=== PATIENT | female | born 2000 | race Caucasian/White ===

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

== ENCOUNTER → 2020-05-08 | Outpatient (CLI) | payer BC, SELFPAY ==
[2020-05-08 12:58] LABS: Absolute Lymphocyte Count 1.76 X10^3/uL (0.83-4.51); Absolute Neutrophil Count 2.7 X10^3/uL (2.0-7.7); Basophil# 0.04 X10^3/uL; Basophil% 0.8 % (0-1); Eosinophils% 3.8 % (0-5); Hematocrit 43.4 % (37-47); Hemoglobin 14.1 g/dL (12.0-15.0); Lymphocyte # 1.76 X10^3/ul (4.0); Lymphocyte % 33.8 % (19-41); Mean Corp Hgb Conc 32.5 g/dL (32-36); Mean Corpuscular Hgb 30.3 pg (27.0-32.0); Mean Corpuscular Volume 93.1 fL (81-99); Mean Platelet Vol. 10.4 fl (6.2-12.0); Monocyte# 0.54 X10^3/uL; Monocyte% 10.4 % (0-10); NRBC Flagged by Analyzer 0 % (0-5); Neutrophil # 2.66 X10^3/uL (2.7-7.7); Platelet Count 232 K/mm3 (150-450); RBC Distribution Width CV 11.7 % (11.6-14.6); RBC Distribution Width SD 39.7 fl (35.1-43.9); Red Blood Count 4.66 M/mm3 (4.2-5.4); White Blood Count 5.2 K/mm3 (4.4-11.0)
[2020-05-08 13:24] LABS: Vitamin B12 283 pg/mL (211-911); Vitamin D,25 Hydroxy 48.5 ng/mL
[2020-05-08 13:34] LABS: AST(SGOT) 15 U/L (15-37); Alanine Aminotransfer ALT/SGPT 17 U/L (13-56); Albumin, Serum 3.8 g/dL (3.2-5.0); Alkaline Phosphatase 76 U/L (45-117); Anion Gap 6 (5-15); BUN 12 mg/dL (7-18); BUN/Creat Ratio 14.7 RATIO (10-20); Calcium,Total 9.2 mg/dL (8.5-10.1); Chloride 104 mmol/L (98-107); Creatinine, Serum 0.82 mg/dL (0.55-1.02); EST Glomerular Filtration Rate 94 mL/min (>60); Est Glom Filt Rate - Afr Amer 114 mL/min (>60); Ferritin 10 ng/mL (8-252); Globulin 3.9 g/dL (2.2-4.2); Glucose 59 mg/dL (74-106); Iron 178 ug/dL (50-170); Potassium 3.7 mmol/L (3.5-5.1); Protein, Total 7.7 g/dL (6.4-8.2); Sodium Level 138 mmol/L (136-145)
[2020-05-09 16:08] LABS: Endomysial Antibody IgA Negative (Negative)
[2020-05-09 19:10] LABS: Immunoglobulin A 205 mg/dL (87-352); t-Transglutaminase IgA <2 U/mL (0-3)
== END | disposition home or self-care (01) ==
LOC: LAB 10:43
DX: K90.0 Celiac disease (principal); Z78.9 Other specified health status; Z01.419 Encounter for gynecological examination (general) (routine) without abnormal findings
CPT/HCPCS: 36415; 80053; 82306; 82607; 82728; 82784; 83516; 83540; 85025; 86255

== ENCOUNTER → 2020-09-13 12:52 | Outpatient (CLI) | payer BC, SELFPAY ==
[2020-09-13 13:52] LABS: Anion Gap 7 (5-15); BUN 14 mg/dL (7-18); BUN/Creat Ratio 16.6 RATIO (10-20); Calcium,Total 9.1 mg/dL (8.5-10.1); Chloride 108 mmol/L (98-107); Creatinine, Serum 0.84 mg/dL (0.55-1.02); EST Glomerular Filtration Rate 90 mL/min (>60); Est Glom Filt Rate - Afr Amer 109 mL/min (>60); Glucose 81 mg/dL (74-106); Sodium Level 139 mmol/L (136-145)
[2020-09-13 13:56] LABS: Insulin 11.2 mU/L (2.6-37.6)
[2020-09-13 14:00] LABS: Hemoglobin A1c 5.2 % (3.8-5.6)
== END ==
DX: E16.2 Hypoglycemia, unspecified (principal)
CPT/HCPCS: 36415; 80048; 83036; 83525

== ENCOUNTER 2020-10-10 15:35 | Emergency (ER) | payer BC, SELFPAY ==
[2020-10-10 15:37] VITALS: BP 147/94; PULSE 112; RESP 16; TEMP 35.7; O2SAT 99; BMI 22.6
--- NOTE | 2020-10-10 16:11 | CT_ITS ---
STUDY: CT BRAIN WITHOUT CONTRAST REASON FOR EXAM: Female, 20 years old. myoclonus RADIATION DOSAGE (If Supplied By Facility): CTDIvol = ( 60.81 ) mGy, DLP = ( 1044.28 ) mGycm TECHNIQUE: Transaxial CT imaging of the brain was performed without administration of intravenous contrast material. Individualized dose optimization techniques were used for this CT. COMPARISON: No relevant priors. FINDINGS: Normal soft tissue structures. Normal calvarium. Normal size ventricles and extra-axial spaces for the patient''s age. Normal white matter tracts of the cerebral hemispheres. Normal basal ganglia and thalami. Normal brainstem. Normal cerebellum. There is no intracranial hemorrhage. There are no findings of an acute ischemic infarction. Normal visualized paranasal sinuses. CT/Brain/Head without Contrast IMPRESSION: Normal unenhanced CT scan of the brain. Electronically Signed: Boubacar Barrientos MD at 17:22 EST , Service support ,
--- NOTE | 2020-10-10 16:13 | ED.DCSUM_ITS ---
History of Present Illness Chief Complaint: Seizure Narrative: Patient is a 20-year-old female who presents for possible seizure. She describes myoclonic jerks last night. She states this actually has happened before but not as persistently. Over the course of a couple of hours last night she would have frequent jerks of her arms or legs. This was all 4 extremities. She contacted her physician's office at home, she is a [employer] student. The nurse advised her to go to the emergency department that this was a possible seizure. She denies any recent illness. No fevers cough chest pain difficulty breathing headache vomiting diarrhea. She does take an SSRI. She had been prescribed olanzapine but never started taking this. Past Medical History - Allergies and Home Meds Allergies/Adverse Reactions: Allergies gluten Allergy (Severe, Verified 10/10/20 15:37) Food Allergy Primary Care Physician: Care Physician,No Primary [NON-STAFF] - Past Medical History: - - Depression Review of Systems All systems negative except as indicated General: Denies: Fever Eyes: Denies: Visual changes - bilaterally ENT: Denies: Bilateral ear pain Cardiovascular: Denies: Chest pain Respiratory: Denies: Cough Gastrointestinal: Denies: Nausea, Vomiting Musculoskeletal: Denies: Myalgias, Arthralgias Skin: Denies: Rash Neurological: Reports: - - Myoclonus Hematologic: Denies: Easy bruising Allergy: Denies: Uticaria Physical Exam Vital Signs/Narrative: Vital Signs Temp Pulse Resp BP Pulse Ox 10/10/20 15:37 96.2 F L 112 H 16 147/94 H 99 Inital Vital Signs reviewed: Yes General: Well nourished Head: Normocephalic Eyes: EOMI ENT: Moist mucous membranes Neck: Supple Cardiovascular: Regular rate, Regular rhythm Respiratory: No distress, CTA bilaterally Abdomen: Soft, Nontender Neurological: Alert, Oriented x3, Normal Strength, Normal Sensation. Negative for: Parasthesia, Weakness Psychological: Normal affect Diagnostic/Tx/Re-eval Impressions Brain CT 10/10/20 16:11 IMPRESSION: Normal unenhanced CT scan of the brain. Electronically Signed: Boubacar Barrientos MD at 17:22 EST , Service support , 10/10/20 16:11 Brain/Head without Contrast [CT] Stat Laboratory Results 10/10/20 10/10/20 10/10/20 16:40 16:40 16:40 WBC 5.3 RBC 5.09 Hgb 15.4 H Hct 46.8 MCV 91.9 MCH 30.3 MCHC 32.9 RDW Std Deviation 39.4 RDW Coeff of Sree 11.7 Plt Count 243 MPV 9.6 Immature Gran % (Auto) 0.200 Neut % (Auto) 48.8 Lymph % (Auto) 36.8 Rapides % (Auto) 11.3 H Eos % (Auto) 2.1 Baso % (Auto) 0.8 Absolute Neuts (auto) 2.6 Absolute Lymphs (auto) 1.96 Nucleated RBC % 0 Sodium 140 Potassium 3.6 Chloride 107 Carbon Dioxide 27.0 Anion Gap 6 BUN 9 Creatinine 0.99 Estim Creat Clear Calc 84.15 Est GFR (MDRD) Af Amer 91 Est GFR (MDRD) Non-Af 75 BUN/Creatinine Ratio 9.1 L Glucose 94 Calcium 9.6 Total Bilirubin 0.60 AST 15 ALT 19 Alkaline Phosphatase 76 Total Protein 8.6 H Albumin 4.2 Globulin 4.4 H Albumin/Globulin Ratio 1.0 Serum , Qual NEGATIVE - Medical Decision Making Laboratory studies electrolytes normal. negative. CT of the head shows no acute process. Her description of symptoms is not consistent with a generalized tonic-clonic seizure or focal partial seizure. I do not believe this is seizure related but rather it sounds like myoclonus/myoclonic jerks. She was advised this could potentially be medication related. She was advised to follow-up as an outpatient. She was referred to neurology should symptoms continue. She understands to return for new or worsening symptoms. Patient was discharged. ED Disposition - Plan for ED Patient: Disposition: Home or Assisted Living Diagnosis: Myoclonic jerking Referrals: Care Physician,No Primary [NON-STAFF] - Reggie Gan MD [STAFF PHYSICIAN] - Additional Instructions: You were seen today for jerking movements of your arms and legs. We do not believe this was related to a seizure but could potentially be medication related. Follow-up as an outpatient. Return for new or worsening symptoms.
[2020-10-10 16:50] LABS: Absolute Lymphocyte Count 1.96 X10^3/uL (0.83-4.51); Absolute Neutrophil Count 2.6 X10^3/uL (2.0-7.7); Basophil# 0.04 X10^3/uL; Basophil% 0.8 % (0-1); Eosinophil# 0.11 X10^3/uL; Eosinophils% 2.1 % (0-5); Hematocrit 46.8 % (37-47); Hemoglobin 15.4 g/dL (12.0-15.0); Lymphocyte # 1.96 X10^3/ul (4.0); Lymphocyte % 36.8 % (19-41); Mean Corp Hgb Conc 32.9 g/dL (32-36); Mean Corpuscular Hgb 30.3 pg (27.0-32.0); Mean Corpuscular Volume 91.9 fL (81-99); Mean Platelet Vol. 9.6 fl (6.2-12.0); Monocyte% 11.3 % (0-10); NRBC Flagged by Analyzer 0 % (0-5); Neutrophil % 48.8 % (47-70); Platelet Count 243 K/mm3 (150-450); RBC Distribution Width CV 11.7 % (11.6-14.6); RBC Distribution Width SD 39.4 fl (35.1-43.9); Red Blood Count 5.09 M/mm3 (4.2-5.4); White Blood Count 5.3 K/mm3 (4.4-11.0)
[2020-10-10 17:00] LABS: Internal QC Validated? YES +Cl - CLEAR BKGD; Pregnancy, Serum, hCG Quali. NEGATIVE Negative
[2020-10-10 17:09] LABS: AST(SGOT) 15 U/L (15-37); Alanine Aminotransfer ALT/SGPT 19 U/L (13-56); Albumin, Serum 4.2 g/dL (3.2-5.0); Alkaline Phosphatase 76 U/L (45-117); Anion Gap 6 (5-15); BUN 9 mg/dL (7-18); BUN/Creat Ratio 9.1 RATIO (10-20); Calcium,Total 9.6 mg/dL (8.5-10.1); Chloride 107 mmol/L (98-107); Creatinine, Serum 0.99 mg/dL (0.55-1.02); EST Glomerular Filtration Rate 75 mL/min (>60); Est Glom Filt Rate - Afr Amer 91 mL/min (>60); Estimated Creatinine Clearance 84.15 ml/min; Globulin 4.4 g/dL (2.2-4.2); Glucose 94 mg/dL (74-106); Potassium 3.6 mmol/L (3.5-5.1); Protein, Total 8.6 g/dL (6.4-8.2); Sodium Level 140 mmol/L (136-145)
[2020-10-10 17:55] VITALS: BP 120/82; PULSE 97; RESP 16; O2SAT 99
== END 2020-10-10 17:55 | disposition home or self-care (01) ==
PROVIDERS: Emergency Provider Emergency Medicine
DX: G25.3 Myoclonus (principal)
CPT/HCPCS: 70450; 80053; 84703; 85025; 99282; A4216